=== PATIENT | male | born 1995 | race Caucasian/White ===

== ENCOUNTER 2024-05-10 13:46 | Emergency (ER) | payer OTHER ==
[2024-05-10 13:53] VITALS: BP 135/86; PULSE 72; RESP 18; TEMP 98.1; BMI 23.0
[2024-05-10] MEDS ORDERED: ONDANSETRON 4 MG TABLET PO ONE (14:39)
[2024-05-10] MEDS ORDERED: ACETAMINOPHEN 325 MG TABLET (FP) ONE (14:39)
[2024-05-10] MEDS: ONDANSETRON 4 MG TABLET PO ONE (15:02)
[2024-05-10] MEDS: ACETAMINOPHEN 500 MG TABLET (FP) PO ONE (15:02)
[2024-05-10] MEDS: SODIUM CHLORIDE 0.9% 500 ML INFUS.BAG IV ONE (15:03)
[2024-05-10 15:32] LABS: BASO % 0.4 % (0-2.0); EOS % 2.1 % (0-4.5); HEMOGLOBIN 14.1 GM/dL (11.7-16.9); LYMPH % 24.9 % (8-40); MCH 31.8 pg (25.7-33.7); MCHC 34.4 g/dl (32.0-35.9); MEAN CELL VOLUME 92.6 fl (80-96); MEAN PLT VOLUME 8.9 fl (7.5-11.1); MONO % 9.8 % (3.8-10.2); NEUT % 62.8 % (42.8-82.8); PLATELET COUNT 214 10^3/uL (134-434); RBC 4.42 M/mm3 (4.00-5.60); RDW 12.7 % (11.9-15.9); WHITE BLOOD COUNT 8.4 K/mm3 (4.0-10.0)
[2024-05-10 16:01] LABS: ALBUMIN 4.7 g/dl (3.4-5.0); BLOOD UREA NITROGEN 26.4 mg/dL (7-18); CALCIUM 9.9 mg/dL (8.5-10.1)
[2024-05-10 16:06] LABS: BILIRUBIN,TOTAL 1.3 mg/dL (0.2-1); TOT PROT 8.2 g/dl (6.4-8.2)
== END 2024-05-10 17:55 | disposition home or self-care (01) ==
LOC: JER 13:46
DX: R42 Dizziness and giddiness (principal); R51.9 Headache, unspecified; R11.0 Nausea
CPT/HCPCS: 36415; 70450-TC; 72125-TC; 80053; 85025; 93005; 93010; 99285-25